=== PATIENT | female | born 1960 | race Two or more races ===

== ENCOUNTER 2020-04-18 02:57 | Emergency (ER) | payer SELFPAY ==
[~2020-04-18 02:57] MED LIST: HYDACE5 PO; Macrobid 100 M100 MG PO; NAPR220; Pyridium100 MG PO; Zofran4 MG PO
[2020-04-18 06:20] LABS: Albumin, Blood 3.3 g/dL (3.4-5.0); Albumin/Globulin Ratio 0.8 (0.8-1.8); BASOPHILS ABSOLUTE AUTO 0.04 K/mm3 (0.00-0.23); BASOPHILS PERCENT AUTO 1 % (0-2); Bilirubin, Total 0.5 mg/dL (0.1-1.0); Bun/Creatinine Ratio 13.2 (12.0-20.0); Calcium, Blood 9.7 mg/dL (8.5-10.1); Creatinine, Blood 1.06 mg/dL (0.40-1.00); EOSINOPHILS PERCENT AUTO 2 % (0-6); Globulin, Blood 4.1 g/dL (2.2-4.0); Hematocrit 39.5 % (33.0-51.0); Hemoglobin 13.1 g/dL (11.5-16.0); IMMATURE GRAN ABSOLUTE AUTO 0.01 K/mm3 (0.00-0.10); IMMATURE GRAN PERCENT AUTO 0 % (0-1); LYMPHOCYTES PERCENT AUTO 40 % (21-46); MONOCYTES ABSOLUTE AUTO 0.32 K/mm3 (0.16-1.47); MONOCYTES PERCENT AUTO 8 % (4-13); Mean Corpuscular HGB 30.8 pg (26.0-34.0); Mean Corpuscular HGB Conc 33.2 g/dL (31.5-36.5); Mean Corpuscular Volume 93 fL (80-100); Mean Platelet Volume 11.4 fL (9.1-12.4); NEUTROPHILS ABSOLUTE AUTO 2.09 K/mm3 (1.96-9.15); NEUTROPHILS PERCENT AUTO 49 % (41-73); Platelet Count 90 K/mm3 (150-400); Potassium, Blood 3.7 mmol/L (3.5-5.5); RDW Coefficient Variation 12.5 % (11.7-14.2); Red Blood Cell Count 4.25 M/mm3 (3.80-5.20); Total Protein, Blood 7.4 g/dL (6.4-8.2); White Blood Cell Count 4.26 K/mm3 (4.00-11.30)
[2020-04-18 06:24] LABS: Appearance, Urine Hazy (Clear); Bilirubin, Urine Neg (Neg); Blood, Urine 5+ (Neg); Color, Urine Yellow (P-Yellow); Glucose Qualitative, Urine Neg (Neg); Ketones, Urine Neg (Neg); Leukocyte Esterase, Urine 3+ (Neg); Nitrite, Urine Pos (Neg); Protein, Urine 2+ (Neg); Urobilinogen, Urine 1+ (Normal)
[2020-04-18 06:25] LABS: Bacteria Mod /hpf; Mucus Light (0-Heavy); Red Blood Cells, Urine TNTC /hpf (0-2); Squamous Epithelial Cells Few /hpf (Few)
== END 2020-04-18 06:59 | disposition home or self-care (01) ==
LOC: ER 02:57
PROVIDERS: Emergency Medicine
DX: R10.9 Unspecified abdominal pain (principal); R11.0 Nausea; F17.210 Nicotine dependence, cigarettes, uncomplicated; Z88.4 Allergy status to anesthetic agent; Z88.0 Allergy status to penicillin; Z88.5 Allergy status to narcotic agent
CPT/HCPCS: 74176; 80053; 81001; 85025; 87077; 87086; 87186; J0696; J1170; J1885; J2405; J3010

== ENCOUNTER → 2021-06-10 | Outpatient (CLI) | payer OTHER ==
[2021-06-10 15:19] LABS: Calcium, Urine 9.1 mg/dL (< 17.5); Calcium, Urine Calculation 72.8 mg/24hrs (42.0-353.0)
[2021-06-10 15:42] LABS: Uric Acid, Urine 47.2 mg/dL (7.5-49.5)
== END ==
LOC: LAB SHORT 08:05
PROVIDERS: Family Medicine
DX: Z09 Encounter for follow-up examination after completed treatment for conditions other than malignant neoplasm (principal); Z87.442 Personal history of urinary calculi
CPT/HCPCS: 81050; 82340; 84560

== ENCOUNTER → 2022-08-28 | Outpatient (CLI) | payer OTHER ==
[2022-08-28 14:03] LABS: BASOPHILS ABSOLUTE AUTO 0.03 K/mm3 (0.00-0.23); BASOPHILS PERCENT AUTO 1 % (0-2); EOSINOPHILS ABSOLUTE AUTO 0.06 K/mm3 (0.00-0.68); EOSINOPHILS PERCENT AUTO 2 % (0-6); Hematocrit 35.5 % (33.0-51.0); IMMATURE GRAN ABSOLUTE AUTO 0.02 K/mm3 (0.00-0.10); IMMATURE GRAN PERCENT AUTO 1 % (0-1); LYMPHOCYTES ABSOLUTE AUTO 1.47 K/mm3 (0.84-5.20); LYMPHOCYTES PERCENT AUTO 39 % (21-46); MONOCYTES ABSOLUTE AUTO 0.31 K/mm3 (0.16-1.47); MONOCYTES PERCENT AUTO 8 % (4-13); Mean Corpuscular HGB 31.4 pg (26.0-34.0); Mean Corpuscular HGB Conc 33.8 g/dL (31.5-36.5); Mean Corpuscular Volume 93 fL (80-100); Mean Platelet Volume 11.3 fL (9.1-12.4); NEUTROPHILS ABSOLUTE AUTO 1.91 K/mm3 (1.96-9.15); NEUTROPHILS PERCENT AUTO 50 % (41-73); Platelet Count 85 K/mm3 (150-400); RDW Coefficient Variation 12.9 % (11.7-14.2); RDW Standard Deviation 44.2 fL (35.1-46.3); Red Blood Cell Count 3.82 M/mm3 (3.80-5.20)
[2022-08-28 14:15] LABS: Albumin, Blood 2.9 g/dL (3.4-5.0); Albumin/Globulin Ratio 0.7 (0.8-1.8); Bilirubin, Total 0.8 mg/dL (0.1-1.0); Bun/Creatinine Ratio 13.3 (12.0-20.0); Calcium, Blood 8.3 mg/dL (8.5-10.1); Creatinine, Blood 0.75 mg/dL (0.40-1.00); Globulin, Blood 4.3 g/dL (2.2-4.0); International Normalized Ratio 1.07; Potassium, Blood 3.6 mmol/L (3.5-5.5); Prothrombin Time Results 11.2 Sec (9.7-11.5); Total Protein, Blood 7.2 g/dL (6.4-8.2)
== END | disposition home or self-care (01) ==
LOC: LAB 13:05 → LAB SHORT 13:05
PROVIDERS: Radiology Diagnostic Radiology
DX: C22.0 Liver cell carcinoma (principal)
CPT/HCPCS: 80053; 82105; 85025; 85610

== ENCOUNTER 2025-04-23 11:06 | Observation (INO) | payer MEDICARE, OTHER ==
[~2025-04-23] VITALS: Ht 152.4 cm; Wt 58.4 kg
[~2025-04-23 11:06] MED LIST changes: +Enalapril Maleat5 MG PO; +HYDCHL25 PO; +Ultram50 MG PO
[2025-04-23 11:37] LABS: BASOPHILS ABSOLUTE AUTO 0.06 K/mm3 (0.00-0.23); BASOPHILS PERCENT AUTO 1 % (0-2); EOSINOPHILS ABSOLUTE AUTO 0.07 K/mm3 (0.00-0.68); EOSINOPHILS PERCENT AUTO 2 % (0-6); Hematocrit 42.3 % (33.0-51.0); Hemoglobin 15.3 g/dL (11.5-16.0); IMMATURE GRAN ABSOLUTE AUTO 0.05 K/mm3 (0.00-0.10); IMMATURE GRAN PERCENT AUTO 1 % (0-1); LYMPHOCYTES ABSOLUTE AUTO 1.67 K/mm3 (0.84-5.20); LYMPHOCYTES PERCENT AUTO 36 % (21-46); MONOCYTES ABSOLUTE AUTO 0.31 K/mm3 (0.16-1.47); MONOCYTES PERCENT AUTO 7 % (4-13); Mean Corpuscular HGB Conc 36.2 g/dL (31.5-36.5); Mean Corpuscular Volume 85 fL (80-100); NEUTROPHILS ABSOLUTE AUTO 2.46 K/mm3 (1.96-9.15); NEUTROPHILS PERCENT AUTO 53 % (41-73); NRBC ABSOLUTE 0.03 K/mm3 (0.00-0.02); NRBC Auto 0.6 /100 WBC (0.0-0.2); Platelet Count 148 K/mm3 (150-400); RDW Coefficient Variation 12.4 % (11.7-14.2); RDW Standard Deviation 37.7 fL (35.1-46.3)
[2025-04-23 11:49] LABS: Alanine Aminotransfer (ALT/SGP 137.0 U/L (12-78); Albumin, Blood 3.6 g/dL (3.4-5.0); Albumin/Globulin Ratio 0.7 (0.8-1.8); Anion Gap 9.0 mmol/L (3-11); Aspartate Aminotrans (AST/SGOT 121.0 U/L (12-37); Bilirubin, Total 0.9 mg/dL (0.1-1.0); Blood Urea Nitrogen 15.0 mg/dL (8-24); CO2, Blood 25.0 mmol/L (21-32); Calcium, Blood 9.1 mg/dL (8.5-10.1); Chloride, Blood 105.0 mmol/L (98-108); Creatinine, Blood 0.89 mg/dL (0.40-1.00); Globulin, Blood 5.4 g/dL (2.2-4.0); Glucose, Blood 104.0 mg/dL (70-99); Potassium, Blood 3.5 mmol/L (3.5-5.5); Sodium, Blood 135.0 mmol/L (136-145); Total Protein, Blood 9.0 g/dL (6.4-8.2)
[2025-04-23] MEDS ORDERED: Ondansetron HCl 2 MG / ML 2ML Vial ONE (16:01)
[2025-04-23] MEDS ORDERED: HydrALAZINE HCl 20 MG / ML 1ML Vial IV ONE (16:25)
[2025-04-23] MEDS ORDERED: Diazepam 5 MG / ML 2ML SYR IV PRN (18:50)
[2025-04-23] MEDS ORDERED: Metoprolol Tartrate 1 MG/ML 5 ML VIAL IV PRN (18:50)
[2025-04-23] MEDS ORDERED: Ondansetron HCl 2 MG / ML 2ML Vial IV PRN (18:55)
[2025-04-23] MEDS ORDERED: Prochlorperazine Edisylate 10 mg Vial IV PRN (18:55)
[2025-04-23] MEDS ORDERED: D5W-1/2NS KCl 20mEq 1,000 ML IV SCH (18:55)
[2025-04-23] MEDS ORDERED: Pantoprazole Sodium 40 MG Injection IV SCH (19:00)
[2025-04-23] MEDS ORDERED: FLU VACC TS2025(65UP)/MF59C/PF 45 MCG/0.5 ML SYRINGE IM SCH (19:00)
[2025-04-23] MEDS ORDERED: Heparin Sodium,Porcine 5,000 UNIT/0.5 ML SDV SC SCH (21:00)
[2025-04-23 21:17] LABS: Anti-Xa UFH, PHA Monitoring <0.10 IU/mL; Prothrombin Time Results 11.4 Sec (9.7-11.5)
[2025-04-23] MEDS ORDERED: Heparin Sodium 5000 Units/ML 1ML MDV IV ONE (21:25)
[2025-04-23] MEDS ORDERED: Heparin Sodium,Porcine/0.5 NS 500 ML IV SCH (21:25)
[2025-04-23 21:42] VITALS: BP 174/79
--- NOTE | 2025-04-23 22:46 | NUR ---
ASSUMPTION OF CARE PT ARRIVED TO PCU AROUND 2109. PT STOOD AND TRANSFERED FROM [facility] TO U BED. PT A&O X4, CALM, COOPERATIVE TO CARE. HR IN THE 80'S, SR. SHE DENIES ANY CP/PRESSURE, NUMB/TINGLING. SBP IN THE 140'S-170'S, MEDICATING PER EMAR. SpO2 >90% ON RA, SHE DENIES ANY SOB. PT HAS HAS HAD SOME INTERMITTENT NAUSEA, MEDICATED PER EMAR. SHE HAS BREIF IN PLACE. FLUIDS INFUSING PER EMAR. SHE WAS GIVEN A HEPARIN BOLUS FOLLOWED BY A HEPARIN GTT, INFUSING PER EMAR. PT RESTING IN BED AT THIS TIME. CALL LIGHT IN REACH.
[2025-04-24] VITALS (11 sets, daily range): BP systolic 120–178; BP diastolic 70–88
[2025-04-24 04:15] LABS: BASOPHILS ABSOLUTE AUTO 0.04 K/mm3 (0.00-0.23); BASOPHILS PERCENT AUTO 1 % (0-2); EOSINOPHILS ABSOLUTE AUTO 0.00 K/mm3 (0.00-0.68); EOSINOPHILS PERCENT AUTO 0 % (0-6); Hematocrit 37.7 % (33.0-51.0); Hemoglobin 13.4 g/dL (11.5-16.0); IMMATURE GRAN ABSOLUTE AUTO 0.03 K/mm3 (0.00-0.10); IMMATURE GRAN PERCENT AUTO 0 % (0-1); LYMPHOCYTES ABSOLUTE AUTO 1.62 K/mm3 (0.84-5.20); LYMPHOCYTES PERCENT AUTO 23 % (21-46); MONOCYTES ABSOLUTE AUTO 0.46 K/mm3 (0.16-1.47); MONOCYTES PERCENT AUTO 7 % (4-13); Mean Corpuscular HGB Conc 35.5 g/dL (31.5-36.5); Mean Corpuscular Volume 86 fL (80-100); NEUTROPHILS ABSOLUTE AUTO 4.82 K/mm3 (1.96-9.15); NEUTROPHILS PERCENT AUTO 69 % (41-73); NRBC ABSOLUTE 0.00 K/mm3 (0.00-0.02); NRBC Auto 0.0 /100 WBC (0.0-0.2); Platelet Count 120 K/mm3 (150-400); RDW Coefficient Variation 12.2 % (11.7-14.2); RDW Standard Deviation 38.6 fL (35.1-46.3)
[2025-04-24] MEDS ORDERED: Dose Adjust by Pharmacy XX STA ×2 (04:27→11:49)
[2025-04-24 04:28] LABS: Alanine Aminotransfer (ALT/SGP 104.0 U/L (12-78); Albumin, Blood 3.3 g/dL (3.4-5.0); Albumin/Globulin Ratio 0.7 (0.8-1.8); Anion Gap 10.0 mmol/L (3-11); Aspartate Aminotrans (AST/SGOT 84.0 U/L (12-37); Bilirubin, Total 0.8 mg/dL (0.1-1.0); Blood Urea Nitrogen 16.0 mg/dL (8-24); CO2, Blood 24.0 mmol/L (21-32); Calcium, Blood 8.6 mg/dL (8.5-10.1); Chloride, Blood 106.0 mmol/L (98-108); Creatinine, Blood 0.91 mg/dL (0.40-1.00); Globulin, Blood 4.5 g/dL (2.2-4.0); Glucose, Blood 145.0 mg/dL (70-99); Potassium, Blood 3.5 mmol/L (3.5-5.5); Sodium, Blood 136.0 mmol/L (136-145); Total Protein, Blood 7.8 g/dL (6.4-8.2)
--- NOTE | 2025-04-24 06:27 | NUR ---
SHIFT SUMMARY PT A&O X4, CALM, COOPERATIVE TO CARE. HR IN THE 80'S, SR. SHE DENIED ANY CP/PRESSURE, NUMB/TINGLING. SBP IN THE 160'S-170'S, PRN MEDS FOR SBP >190. PT HAS HAD ELEVATED TROPONINS T/O NIGHT, TRENDING T/O NIGHT AND MORNING. PT ON HEPARIN GTT, INFUSING PER EMAR. SpO2 >90% ON RA, SHE DENIES ANY SOB. PT HAS BEEN HAVING ABD PAIN/NAUSEA. SHE DESCRIBES THE PAIN AN ACHING PAIN THATS A 3/10, MEDICATED PER EMAR. PT NPO T/O NIGHT EXCEPT FOR MEDS AND SIPS OF WATER. PT RESTING IN BED AT THIS TIME. CALL LIGHT IN REACH. REPORT TO ONCOMING RN.
--- NOTE | 2025-04-24 07:00 | NUR ---
REPORT RECEIVED FROM HOROLOGIST APPRENTICE NURSE. PT IS A&Ox4 AND ABLE TO MAKE NEEDS KNOWN. SHE IS ON RA W/O2 SATS > 92%. SHE IS A SBA FOR AMBULATION D/T WIRES AND LINES. HEPARIN GTT RUNNING PER EMAR. NO NEEDS OR CONCERNS NOTED @ THIS TIME. BED IN LOW POSITION, CALL LIGHT AND PERSONAL BELONGINGS IN REACH.
[2025-04-24] MEDS ORDERED: HydrALAZINE HCl 20 MG / ML 1ML Vial IV PRN (08:45)
[2025-04-24 09:10] LABS: CHOL/HDL RATIO 3.3; Cholesterol 183 mg/dL (50-200); HDL Cholesterol 56 mg/dL (>39); LDL/HDL RATIO 1.9; Low Density Lipoprotein Chol 108 mg/dL (0-110); Triglycerides 97 mg/dL (30-160); Very Low Density Lipoprot Chol 19 mg/dL (6-32)
[2025-04-24] MEDS ORDERED: Guaifenesin/Dextromethorphan Syrup 5 ML UDC PO PRN (09:45)
--- NOTE | 2025-04-24 18:15 | NUR ---
NO ACUTE EVENTS THIS SHIFT. PT ON HEP GTT PER EMAR. SHE DOES CONTINUE TO ENDORSE CORDERO AND N/V, MEDICATED PER EMAR. NO OTHER NEEDS OR CONCERNS NOTED @ THIS TIME. SHE WILL BE NPO @ MIDNIGHT FOR STRESS TEST 04/25. BED IN LOW POSITION, BED ALARM ON, CALL LIGHT AND PERSONAL BELONGINGS IN REACH.
--- NOTE | 2025-04-24 21:46 | NUR ---
ASSUMPTION OF CARE THIS RN ASSUMED CARE OF PATIENT AT 1900. PT A&O X4. ABLE TO MAKE NEEDS KNOWN. DENIES CHEST PAIN/PRESSURE. PT SCHEDULED FOR STRESS TEST IN AM. EDUCATED ON PLAN OF CARE, PT TO BE NPO AFTER MIDNIGHT. HEP GTT INFUSING PER EMAR. BP STABLE, NO HTN NOTED AT THIS TIME. SR ON MONITOR. ON RA WITH SPO2 >92%. TRENDING TROPONINS. TROPONIN PEAKED AT 590. PT ABLE TO REPOSITION SELF IN BED INDEPENDENTLY. BED IN LOWEST POSITION AND CALL LIGHT WITHIN REACH.
[2025-04-25 01:30] LABS: BASOPHILS ABSOLUTE AUTO 0.04 K/mm3 (0.00-0.23); BASOPHILS PERCENT AUTO 1 % (0-2); EOSINOPHILS ABSOLUTE AUTO 0.02 K/mm3 (0.00-0.68); EOSINOPHILS PERCENT AUTO 0 % (0-6); Hematocrit 37.6 % (33.0-51.0); Hemoglobin 13.3 g/dL (11.5-16.0); IMMATURE GRAN ABSOLUTE AUTO 0.02 K/mm3 (0.00-0.10); IMMATURE GRAN PERCENT AUTO 0 % (0-1); LYMPHOCYTES ABSOLUTE AUTO 2.21 K/mm3 (0.84-5.20); LYMPHOCYTES PERCENT AUTO 27 % (21-46); MONOCYTES ABSOLUTE AUTO 0.53 K/mm3 (0.16-1.47); MONOCYTES PERCENT AUTO 7 % (4-13); Mean Corpuscular HGB Conc 35.4 g/dL (31.5-36.5); Mean Corpuscular Volume 86 fL (80-100); NEUTROPHILS ABSOLUTE AUTO 5.25 K/mm3 (1.96-9.15); NEUTROPHILS PERCENT AUTO 65 % (41-73); NRBC ABSOLUTE 0.00 K/mm3 (0.00-0.02); NRBC Auto 0.0 /100 WBC (0.0-0.2); Platelet Count 131 K/mm3 (150-400); RDW Coefficient Variation 12.5 % (11.7-14.2); RDW Standard Deviation 39.2 fL (35.1-46.3)
[2025-04-25] MEDS ORDERED: Dose Adjust by Pharmacy XX STA ×2 (01:55→08:33)
[2025-04-25 02:42] LABS: Alanine Aminotransfer (ALT/SGP 106.0 U/L (12-78); Albumin, Blood 3.3 g/dL (3.4-5.0); Albumin/Globulin Ratio 0.8 (0.8-1.8); Anion Gap 10.0 mmol/L (3-11); Aspartate Aminotrans (AST/SGOT 92.0 U/L (12-37); Bilirubin, Total 0.9 mg/dL (0.1-1.0); Blood Urea Nitrogen 18.0 mg/dL (8-24); CO2, Blood 23.0 mmol/L (21-32); Calcium, Blood 8.8 mg/dL (8.5-10.1); Chloride, Blood 105.0 mmol/L (98-108); Creatinine, Blood 0.96 mg/dL (0.40-1.00); Globulin, Blood 4.3 g/dL (2.2-4.0); Glucose, Blood 115.0 mg/dL (70-99); Potassium, Blood 3.4 mmol/L (3.5-5.5); Sodium, Blood 135.0 mmol/L (136-145); Total Protein, Blood 7.6 g/dL (6.4-8.2)
[2025-04-25 03:21] VITALS: BP 154/81
--- NOTE | 2025-04-25 04:47 | NUR ---
SHIFT SUMMARY SEE PREVIOUS NOTE NO ACUTE CHANGES OVERNIGHT. VSS. DENIES CHEST PAIN/PRESSURE. PT HAS BEEN NPO SINCE MIDNIGHT. AMBULATING TO BATHROOM WITH SBA. CALLING APPROPRIATELY. HEP GTT INFUSING PER EMAR. BED IN LOWEST POSITION AND CALL LIGHT WITHIN REACH. THIS RN WILL REPORT TO ONCOMING DAYSHIFT RN.
[2025-04-25 07:46] VITALS: BP 168/72
[2025-04-25 11:40] VITALS: BP 147/77
[2025-04-25 16:51] VITALS: BP 152/90
--- NOTE | 2025-04-25 18:01 | NUR ---
SHIFT SUMMARY: A&OX4, ABLE TO MAKE NEEDS KNOWN. DENIES CHEST PAIN AND SHORTNESS OF BREATH. SBA TO BATHROOM, USES CALL LIGHT APPROPRIATELY. STRESS TEST COMPLETED. RATE IS SINUS RHYTYM IN THE 60s-80s. HEPARIN INFUSING PER EMAR. VSS THROUGHOUT SHIFT, SBP MAINTAING 140-150s.
[2025-04-25 19:46] VITALS: BP 148/87
[2025-04-26 00:20] VITALS: BP 175/85
[2025-04-26 03:13] VITALS: BP 140/76
[2025-04-26 04:13] LABS: BASOPHILS ABSOLUTE AUTO 0.05 K/mm3 (0.00-0.23); BASOPHILS PERCENT AUTO 1 % (0-2); EOSINOPHILS ABSOLUTE AUTO 0.04 K/mm3 (0.00-0.68); EOSINOPHILS PERCENT AUTO 1 % (0-6); Hematocrit 38.9 % (33.0-51.0); Hemoglobin 13.6 g/dL (11.5-16.0); IMMATURE GRAN ABSOLUTE AUTO 0.04 K/mm3 (0.00-0.10); IMMATURE GRAN PERCENT AUTO 1 % (0-1); LYMPHOCYTES ABSOLUTE AUTO 2.01 K/mm3 (0.84-5.20); LYMPHOCYTES PERCENT AUTO 25 % (21-46); MONOCYTES ABSOLUTE AUTO 0.64 K/mm3 (0.16-1.47); MONOCYTES PERCENT AUTO 8 % (4-13); Mean Corpuscular HGB Conc 35.0 g/dL (31.5-36.5); Mean Corpuscular Volume 87 fL (80-100); NEUTROPHILS ABSOLUTE AUTO 5.16 K/mm3 (1.96-9.15); NEUTROPHILS PERCENT AUTO 65 % (41-73); NRBC ABSOLUTE 0.00 K/mm3 (0.00-0.02); NRBC Auto 0.0 /100 WBC (0.0-0.2); Platelet Count 131 K/mm3 (150-400); RDW Coefficient Variation 12.7 % (11.7-14.2); RDW Standard Deviation 40.3 fL (35.1-46.3)
[2025-04-26 04:32] LABS: Anion Gap 8.0 mmol/L (3-11); Blood Urea Nitrogen 28.0 mg/dL (8-24); CO2, Blood 25.0 mmol/L (21-32); Calcium, Blood 9.3 mg/dL (8.5-10.1); Chloride, Blood 105.0 mmol/L (98-108); Creatinine, Blood 0.86 mg/dL (0.40-1.00); Glucose, Blood 126.0 mg/dL (70-99); Potassium, Blood 3.2 mmol/L (3.5-5.5); Sodium, Blood 135.0 mmol/L (136-145)
--- NOTE | 2025-04-26 04:43 | NUR ---
SHIFT SUMMARY PT ALERT ORIENTED X 4 PLEASANT AND COOPERATIVE WITH CARE. ABLE TO VERBALIZE NEEDS. VSS EXCEPT HER BP AT 0000 WAS 175/85. SHE WAS GIVEN A DOSE OF HYDRALAZINE. GETS UP WITH 1 PERSON SBA AND AMBULATES TO THE BATHROOM. . REMAINS ON TELEMETRY AT NSR IN THE 70 S-80 S. REMAINS ON RA SATTING 95-100%. SHE REMAINS ON A HEART HEALTHY DIET.. SHE CAN TAKE MEDS WHOLE WITH WATER. DCED HER HEPARIN LAST NIGHT DUE TO NEGATIVE STRESS TEST. SHE C/O RT SHOULDER PAIN. HOT PACK WAS APPLIED TO THE AREA WITH GOOD RELIEF.. HER POTASSIUM THIS AM WAS 3.2 WILL CALL MD TO GET ORDER. CALL LIGHT IN REACH. BED IN LOWEST POSITION, REPORT TO ONCOMING NURSE.
[2025-04-26] MEDS ORDERED: Potassium Chl 20MEQ/Water100ML 100 ML IV STA (05:36)
[2025-04-26] MEDS ORDERED: NS 250 ML IV PRN (06:00)
[2025-04-26 06:29] LABS: Magnesium, Blood 2.1 mg/dL (1.6-2.4)
[2025-04-26 07:37] VITALS: BP 177/110
[2025-04-26 07:38] VITALS: BP 181/82
[2025-04-26 10:35] VITALS: BP 145/73
[2025-04-26 11:26] VITALS: BP 143/80
[2025-04-26] MEDS ORDERED: ATOR20 PO ×2 (12:22)
[2025-04-26] MEDS ORDERED: LOSA25 PO ×2 (12:23)
[2025-04-26] MEDS ORDERED: Carvedilol12.5 MG PO ×2 (12:23)
[2025-04-26] MEDS ORDERED: POTCHL20ER PO ×2 (12:24)
[2025-04-26] MEDS ORDERED: MELATONIN5 M1 PO ×2 (12:24)
--- NOTE | 2025-04-26 13:35 | NUR ---
DISCHARGE SUMMARY: PATIENT RESTING COMFORTABLY IN BED, A&OX4, VSS. BLOOD PRESSURE ELEVATED IN AM, NORMALIZED WITH SCHEDULED BLOOD PRESSURE MEDICATION ADMINISTRATION. SINUS RHYTHM IN THE 60S-80S. DENIES CHEST PAIN OR SHORTNESS OF BREATH. DISCHARGED HOME WITH AT 1300, WITH INSTRUCTIONS TO FOLLOW UP WITH PCP.
[2025-04-28 17:00] LABS: ALDOSTERONE 4.8 ng/dL; ALDOSTERONE/RENINACTIVITY CALC 5.4 ratio (<=25.0); RENIN ACTIVITY 0.9 ng/mL/hr
[2025-04-29] MEDS ORDERED: CEFP200 PO (08:43)
[2025-04-29] MEDS ORDERED: HYDHCL25 PO (08:51)
== END 2025-04-26 13:10 | disposition home or self-care (01) ==
LOC: ER 11:06 → PCU 11:07
PROVIDERS: Emergency Medicine; Family Medicine; ADMIT Internal Medicine
DX: I16.1 Hypertensive emergency (principal); I10 Essential (primary) hypertension; R79.89 Other specified abnormal findings of blood chemistry; K74.60 Unspecified cirrhosis of liver; E78.5 Hyperlipidemia, unspecified; C22.0 Liver cell carcinoma; F17.210 Nicotine dependence, cigarettes, uncomplicated; Z88.0 Allergy status to penicillin; Z88.5 Allergy status to narcotic agent; Z88.8 Allergy status to other drugs, medicaments and biological substances; Z79.899 Other long term (current) drug therapy
CPT/HCPCS: 36415; 70450; 71046; 78452; 80048; 80053; 80061; 82088; 83735; 84244; 84484; 85025; 85520; 85610; 85730; 93005; 93010; 93017; 93306; 96365; 96366; 96368; 96374; 96375; 96376; 99285-25; A9270; A9500; G0378; J0360; J0706; J0780; J1644; J2405; J2470; J2785; J3360; J3480